=== PATIENT | male | born 1980 | race Caucasian/White ===

== ENCOUNTER 2019-06-24 17:21 | Emergency (ER) | payer OTHER ==
[~2019-06-24] VITALS: Ht 172.7 cm; Wt 122.5 kg
[2019-06-24] MEDS ORDERED: SYNTHROID175 MCG (17:35)
[2019-06-24] MEDS ORDERED: ZOCOR20 MG (17:36)
[2019-06-24] MEDS ORDERED: COZAAR50 MG (17:36)
[2019-06-25] MEDS ORDERED: DICY20TA PO (03:28)
[2019-06-25] MEDS ORDERED: CARAFATE1 GM PO (03:28)
[2019-06-26] MEDS ORDERED: DICY20TA (06:42)
[2019-06-26] MEDS ORDERED: ZOFRAN8 MG (06:42)
== END 2019-06-25 05:38 | disposition home or self-care (01) ==
LOC: ER 17:21
DX: R11.11 Vomiting without nausea (principal)

== ENCOUNTER 2019-06-26 06:25 | Emergency (ER) | payer OTHER ==
[~2019-06-26] VITALS: Ht 172.7 cm; Wt 122.5 kg
[~2019-06-26 06:25] MED LIST: CARAFATE1 GM PO; COZAAR50 MG; DICY20TA PO; SYNTHROID175 MCG; ZOCOR20 MG
[2019-06-26] MEDS ORDERED: ZOFRAN8 MG (06:42)
[2019-06-26] MEDS ORDERED: DICY20TA (06:42)
== END 2019-06-26 17:55 | disposition home or self-care (01) ==
LOC: ER 06:25
DX: R51 Headache (principal); K29.70 Gastritis, unspecified, without bleeding